=== PATIENT | female | born 1965 | race Caucasian/White ===

== ENCOUNTER 2019-01-20 13:20 | Day surgery (SDC) | payer BC ==
[~2019-01-20] VITALS: Ht 170.2 cm; Wt 54.3 kg
[2019-01-20 14:36] VITALS: Ht 170.2 cm; Wt 54.3 kg
[2019-01-20] MEDS ORDERED: VITAMIN B (14:44)
[2019-01-20] MEDS ORDERED: [UNRECOGNIZED DRUG - OTHER] (14:44)
[2019-01-20 15:36] VITALS: BP 123/84; PULSE 63; RESP 14
[2019-01-20] MEDS ORDERED: PROPOFOL 40 ML ONE (16:05)
[2019-01-20] MEDS ORDERED: LIDOCAINE 100 MG SYRINGE ONE (16:05)
--- NOTE | 2019-01-20 16:05 | PREAC ---
Date/Time of Note Date/Time of Note DATE: 01/20/19 TIME: 16:04 Anesthesia Eval and Record Evaluation Time Pre-Procedure Interview DATE: 01/20/19 TIME: 16:04 Age 53 Sex female NPO: 8 hrs Preoperative diagnosis SIBO Planned procedure COLONOSCOPY WITH BIOPSIES Past Medical History Past Medical History: None Surgery & Anesthesia Issues No known issue Meds Anticoagulation: No Beta Emma within 24 hr: No Reason Beta Emma not given: Pt. not on B-Emma Reported Medications [Vitamin B] No Conflict Check 01/20/19 [Vitamind D ] No Conflict Check 01/20/19 Meds reviewed: Yes Allergies Coded Allergies: No Known Allergy (Unverified , 01/20/19) Allergies Reviewed: Yes Labs/Studies Labs Reviewed: Reviewed by anesthesiologist test: N/A Pre-procedure Exam Last vitals Vital Signs Date Temp Pulse Resp B/P (MAP) Pulse Ox O2 O2 Flow FiO2 Time Delivery Rate 01/20/19 97.8 63 14 123/84 100 Room Air 15:36 (97) Airway: Adequate mouth opening, Adequate thyromental dist Mallampati: Mallampati II Teeth: Normal Lung: Normal Heart: Normal ASA Physical Status ASA physical status: 1 Emergency: None Planned Anesthetic General/MAC: MAC Planned Pain Management Parenteral pain med Pre-operative Attestations Prior to commencing anesthesia and surgery, the patient was re-evaluated, there was verification of: *The patient's identity *The results of appropriate recent lab work and preoperative vital signs *The above evaluation not changing prior to induction *Anesthetic plan, risk benefits, alternative and complications discussed with patient/family; questions answered; patient/family understands, accepts and wishes to proceed. He Byrne M.D. Jan 20, 2019 16:05
--- NOTE | 2019-01-20 16:29 | PAC ---
Date/Time of Note Date/Time of Note DATE: 01/20/19 TIME: 16:29 Post-Anesthesia Notes Post-Anesthesia Note Last documented vital signs Vital Signs Date Temp Pulse Resp B/P (MAP) Pulse Ox O2 O2 Flow FiO2 Time Delivery Rate 01/20/19 97.8 63 14 123/84 100 Room Air 15:36 (97) Activity: WNL Respiratory function: WNL Cardiovascular function: WNL Mental status: Baseline Pain reasonably controlled: Yes Hydration appropriate: Yes Nausea/Vomiting absent: Yes He Byrne M.D. Jan 20, 2019 16:29
== END 2019-01-20 17:51 | disposition home or self-care (01) ==
LOC: GIL 13:20
PROVIDERS: ATTEND Internal Medicine Gastroenterology
DX: Z12.11 Encounter for screening for malignant neoplasm of colon (principal); K64.8 Other hemorrhoids
CPT/HCPCS: 45378; J2001; Z7610

== ENCOUNTER 2019-02-09 08:59 | Day surgery (SDC) | payer BC ==
[2019-02-09] VITALS (8 sets, daily range): BP systolic 118–149; BP diastolic 60–99; PULSE 62–70; RESP 10–18; Ht 170.2 cm; Wt 55.4 kg
[~2019-02-09] VITALS: Ht 170.2 cm; Wt 55.4 kg
[~2019-02-09 08:59] MED LIST: VITAMIN B; [UNRECOGNIZED DRUG - OTHER]
[2019-02-09] MEDS ORDERED: LACTATED RINGER'S 1,000 ML IV SCH (10:30)
--- NOTE | 2019-02-09 10:50 | PREAC ---
Date/Time of Note Date/Time of Note DATE: 02/09/19 TIME: 10:49 Anesthesia Eval and Record Evaluation Time Pre-Procedure Interview DATE: 02/09/19 TIME: 10:49 Age 53 Sex female NPO: 8 hrs Preoperative diagnosis L foot 4th digit pain Planned procedure L foot 4th digit osteotomy Past Medical History Past Medical History: None Surgery & Anesthesia Issues No known issue Meds Anticoagulation: No Beta Emma within 24 hr: No Reason Beta Emma not given: Pt. not on B-Emma Discontinued Reported Medications [Vitamin B] No Conflict Check 01/20/19 [Vitamind D ] No Conflict Check 01/20/19 Current Medications Lactated Ringer's 1,000 ml @ 0 mls/hr Q0M IV Last administered on 02/09/19at 10:08; Admin Dose 0 MLS/HR; Start 02/09/19 at 10:30 Meds reviewed: Yes Allergies Coded Allergies: No Known Allergy (Unverified , 02/09/19) Allergies Reviewed: Yes Labs/Studies Labs Reviewed: Reviewed by anesthesiologist test: Negative Pre-procedure Exam Last vitals Vital Signs Date Temp Pulse Resp B/P (MAP) Pulse Ox O2 O2 Flow FiO2 Time Delivery Rate 02/09/19 98.4 70 16 118/91 99 Room Air 09:57 (100) Airway: Adequate mouth opening, Adequate thyromental dist Mallampati: Mallampati II Teeth: Normal Lung: Normal Heart: Normal ASA Physical Status ASA physical status: 1 Emergency: None Planned Anesthetic General/MAC: ETT, LMA Pre-operative Attestations Prior to commencing anesthesia and surgery, the patient was re-evaluated, there was verification of: *The patient's identity *The results of appropriate recent lab work and preoperative vital signs *The above evaluation not changing prior to induction *Anesthetic plan, risk benefits, alternative and complications discussed with patient/family; questions answered; patient/family understands, accepts and wishes to proceed. TIM OLMEDO Feb 09, 2019 10:50
[2019-02-09] MEDS ORDERED: MEPERIDINE 25 MG INJ IV PRN (11:00)
[2019-02-09] MEDS ORDERED: DIPHENHYDRAMINE 50 MG INJ IV PRN (11:00)
[2019-02-09] MEDS ORDERED: DESFLURANE 15 MIN ONE (11:00)
[2019-02-09] MEDS ORDERED: ALBUTEROL 0.083% (NEB) 2.5 MG/3 ML AMP HHN PRN (11:00)
[2019-02-09] MEDS ORDERED: ONDANSETRON 4 MG INJ IV PRN (11:00)
[2019-02-09] MEDS ORDERED: HYDROmorphONE 1 MG/5 ML IV SYRINGE IV PRN ×3 (11:00)
[2019-02-09] MEDS ORDERED: FENTAnyl 50 MCG/ML VIAL IV PRN ×2 (11:00)
[2019-02-09] MEDS ORDERED: METOCLOPRAMIDE 10 MG INJ IV PRN (11:00)
[2019-02-09] MEDS ORDERED: BUPIVACAINE 0.5% (SDV) 30 ML INJ ONE (11:13)
[2019-02-09] MEDS ORDERED: LIDOCAINE 1% (MPF) 30 ML INJ ONE (11:13)
--- NOTE | 2019-02-09 11:15 | HPN ---
Date/Time of Note Date/Time of Note DATE: 02/09/19 TIME: 11:14 Interval H&P Admission Note Pt. seen H&P reviewed: No system changes WILFRID NERI DPM Feb 09, 2019 11:15
[2019-02-09] MEDS ORDERED: FENTAnyl 50 MCG/ML VIAL ONE (11:31)
[2019-02-09] MEDS ORDERED: LIDOCAINE 100 MG SYRINGE ONE (11:50)
[2019-02-09] MEDS ORDERED: CEFAZOLIN 1 GM INJ ONE (11:50)
[2019-02-09] MEDS ORDERED: SUCCINYLCHOLINE CHLORIDE 100 MG/5 ML SYG IV ONE (11:50)
[2019-02-09] MEDS ORDERED: PROPOFOL 20 ML ONE (11:50)
[2019-02-09] MEDS ORDERED: POVIDONE IODINE 10% 28.4 GM OINT ONE (12:15)
--- NOTE | 2019-02-09 12:27 | SIPON ---
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
--- NOTE | 2019-02-09 13:35 | PAC ---
Date/Time of Note Date/Time of Note DATE: 02/09/19 TIME: 13:35 Post-Anesthesia Notes Post-Anesthesia Note Last documented vital signs Vital Signs Date Temp Pulse Resp B/P (MAP) Pulse Ox O2 O2 Flow FiO2 Time Delivery Rate 02/09/19 62 10 149/99 100 Room Air 12:54 (116) 02/09/19 98.4 09:57 Activity: WNL Respiratory function: WNL Cardiovascular function: WNL Mental status: Baseline Pain reasonably controlled: Yes Hydration appropriate: Yes Nausea/Vomiting absent: Yes TIM OLMEDO Feb 09, 2019 13:35
--- NOTE | 2019-02-09 15:32 | PREOPHP ---
DATE OF ADMISSION: 02/09/2019 HISTORY OF PRESENT ILLNESS: The patient is being admitted to the hospital for elective foot surgery, palliative treatment unsuccessful. The patient has been explained surgery, complications, alternatives and elected to have elective foot surgery. The patient was having pain between 4th and 5th digit on the left foot. ALLERGIES: THE PATIENT DENIES ANY. MEDICATIONS: The patient denies taking medicine. REVIEW OF SYSTEMS: Denies heart, lung, liver, kidney, thyroid. Denies any diabetes. SOCIAL HISTORY: Denies smoking. Occasional alcohol. PHYSICAL EXAMINATION: EXTREMITIES: See any other pertinent history upper extremity physical examination by Dr. Leti Thacker. Lower extremity physical exam shows DP and PT are equal and regular. NEUROLOGICAL: Negative for pathology. MUSCULOSKELETAL: Shows an exostosis in lateral aspect of 4th digit left and medial aspect 5th digit left. DERMATOLOGIC: Shows lesion between the 4th and 5th digits. FINAL DIAGNOSIS: Exostosis 4th lateral and 5th medial. Dictated By: WILFRID TA/RONALD Conf#: [id number] DID#: [id number] MTDD
--- NOTE | 2019-02-09 18:47 | OPR ---
DATE OF OPERATION: 02/09/2019 PREOPERATIVE DIAGNOSES: Exostosis fourth digit lateral aspect left foot and exostosis fifth digit medial aspect of left foot. POSTOPERATIVE DIAGNOSES: Exostosis fourth digit lateral aspect left foot and exostosis fifth digit medial aspect of left foot. SURGERY: Partial ostectomy fourth left and partial ostectomy fifth left. SURGEON: Wilfrid Dempsey DPM. DESCRIPTION OF PROCEDURE: The patient was brought to the surgical suite, placed in the supine position. The patient had a sterile prep and drape and the patient was under general anesthesia. The patient had findings consistent with the pre and postop diagnosis and had a first incision on the dorsum of the fourth digit. On the medial aspect, the incision was carried deep the exostosis, was freed of its attachment and resected. The area was cleansed and the area was then coapted using 5-0 Nylon. Next, attention was turned to the fifth digit. Longitudinal incision with dorsal medial aspect and the exostosis was freed of its attachment and resected. The area was cleansed. The preoperative condition having been relieved. The area was then coapted using 5- 0 Nylon. The patient tolerated the surgery well. The patient had a dressing of 1/2-inch Steri-Strips, the injection of 0.5% Marcaine, Betadine ointment, and 4 x 4's impregnated with Betadine solution with an outer layer of Conrad and Coban. The patient tolerated the surgery well, returned to recovery room in satisfactory condition and there was minimal blood loss and no complications. Dictated By: WILFRID TA/RONALD Conf#: [id number] DID#: [id number] MTDD
== END 2019-02-09 13:55 | disposition home or self-care (01) ==
LOC: SDS 08:59
PROVIDERS: ATTEND Podiatrist
DX: M89.9 Disorder of bone, unspecified (principal)
CPT/HCPCS: 28122; 84703; 88304; J0690; J2001; J3010; Z7512; Z7610